=== PATIENT | female | born 1995 | race Caucasian/White ===

== ENCOUNTER 2018-07-15 21:20 | Emergency (ER) | payer OTHER ==
[~2018-07-15] VITALS: Ht 149.9 cm; Wt 65.8 kg
[~2018-07-15 21:20] MED LIST: AMOX500C PO; PNV1TABL25 PO; PROG200C15 PO
[2018-07-15] MEDS ORDERED: IV RINGERS SOLUTION,LACTATED 1,000 ML IV SCH (21:22)
--- NOTE | 2018-07-15 21:22 | ED.ADGEN ---
Past History Past Medical History: No Pertinent History Past Surgical History: No Surgical History Alcohol Use: None Drug Use: None Adult General Chief Complaint Chief Complaint ".. I was just sitting watching TV with my two year old son... and I got sarah flush.. then I started vomiting.. I seen some bright red blood.. here a picture of it...( very min. bloody streaks)... I was feeling sarah bad yesterday... after Wendys... but did not vomit until too night.... I still a little nauseated..." [facility] HPI Patient is a 22 year old female who presents with above hx and complaints of vomiting, chest pain, and a small amount of bloody mucus streaks in her vomit. Patient denies any history of GERD. Patient denies any history of coagulopathy. Patient denies any history of dark stools. Patient denies any history of previous GI bleeds. Patient does smoke. Patient is normally healthy. Patient does reports possible intake and questionable food. No recent travel or specific ill contacts. No history immunosuppression. Patient normally follows with Dr. Sandhu. Pt. does smoke Marijuana- reviewed with her risks of marijuana induced cyclic vomiting. Review of Systems Review of Systems Constitutional: Denies fever or chills [] Eyes: Denies change in visual acuity, redness, or eye pain [] HENT: Denies nasal congestion or sore throat [] Respiratory: Denies cough or shortness of breath [] Cardiovascular: No additional information not addressed in HPI [] GI: History of epigastric abdominal pain, nausea, vomiting, . Denies bloody stools or diarrhea [] : Denies dysuria or hematuria [] Musculoskeletal: Denies back pain or joint pain [] Integument: Denies rash or skin lesions [] Neurologic: Denies headache, focal weakness or sensory changes [] Endocrine: Denies polyuria or polydipsia [] All other systems were reviewed and found to be within normal limits, except as documented in this note. Family History Family History Noncontributory Current Medications Current Medications Current Medications Medications (Trade) Dose Ordered Sig/Zeferino Start Time Stop Time Status Last Admin Dose Admin Diphenhydramine HCl (Benadryl) 50 mg STK-MED ONCE 07/16/18 00:15 12/15/18 00:27 DC Famotidine (Pepcid Vial) 20 mg 1X ONCE 07/15/18 21:30 07/15/18 21:31 DC 07/15/18 21:47 20 MG Lactated Ringer's 1,000 ml @ 1,000 mls/hr Q1H 07/15/18 21:22 07/15/18 22:21 DC 07/15/18 21:47 1,000 MLS/HR Ondansetron HCl (Zofran) 8 mg 1X ONCE 07/15/18 23:30 07/15/18 23:41 DC 07/15/18 23:28 8 MG Prochlorperazine Edisylate (Compazine) 10 mg STK-MED ONCE 07/16/18 00:15 07/16/18 00:27 DC Allergies Allergies Allergies Coded Allergies Type Severity Reaction Last Updated Verified No Known Drug Allergies 10/03/15 No Physical Exam Physical Exam Constitutional: Well developed, well nourished, very anxious, mild distress, non -toxic appearance. [] HENT: Normocephalic, atraumatic, bilateral external ears normal, oropharynx moist, no oral exudates, nose normal. [] Eyes: PERRLA, EOMI, conjunctiva normal, no discharge. [] Neck: Normal range of motion, no tenderness, supple, no stridor. [] Cardiovascular:Heart rate regular rhythm, no murmur [] Lungs & Thorax: Bilateral breath sounds clear to auscultation [] Abdomen: Bowel sounds normal, soft, mild epigastric tenderness, no masses, no pulsatile masses. [] No rebound. Patient declines rectal exam at this time. Skin: Warm, dry, no erythema, no rash. [] No flank petechiae or excessive bruising Back: No tenderness, no CVA tenderness. [] Extremities: No tenderness, no cyanosis, no clubbing, ROM intact, no edema. [] No psoas sign. Neurologic: Alert and oriented X 3, normal motor function, normal sensory function, no focal deficits noted. [] Psychologic: Affect anxious., judgement normal, mood normal. [] Current Patient Data Vital Signs Vital Signs Date Time Temp Pulse Resp B/P (MAP) Pulse Ox O2 Delivery O2 Flow Rate FiO2 07/15/18 23:55 85 19 95/67 (76) 99 Room Air 07/15/18 21:34 98.2 Lab Results Laboratory Tests Test 07/15/18 21:15 07/15/18 21:34 07/15/18 21:40 Urine Collection Type Unknown Urine Color Yellow Urine Clarity Hazy Urine pH 6.5 Urine Specific [place] 1.025 Urine Protein Trace (NEG-TRACE) Urine Glucose (UA) Neg mg/dL (NEG) Urine Ketones (Stick) Trace mg/dL (NEG) Urine Blood Neg (NEG) Urine Nitrite Neg (NEG) Urine Bilirubin Neg (NEG) Urine Urobilinogen Dipstick 0.2 mg/dL (0.2 mg/dL) Urine Leukocyte Esterase Small (NEG) Urine RBC Occ /HPF (0-2) Urine WBC 1-4 /HPF (0-4) Urine Squamous Epithelial Cells Mod /LPF Urine Bacteria Mod /HPF (0-FEW) Urine Mucus Mod /LPF Urine Opiates Screen Neg (NEG) Urine Methadone Screen Neg (NEG) Urine Barbiturates Neg (NEG) Urine Phencyclidine Screen Neg (NEG) Urine Amphetamine/Methamphetamine Neg (NEG) Urine Benzodiazepines Screen Neg (NEG) Urine Cocaine Screen Neg (NEG) Urine Cannabinoids Screen Pos (NEG) Urine Ethyl Alcohol Neg (NEG) POC Urine HCG, Qualitative hcg negative (Negative) White Blood Count 10.7 x10^3/uL (4.0-11.0) Red Blood Count 4.97 x10^6/uL (3.50-5.40) Hemoglobin 13.7 g/dL (12.0-15.5) Hematocrit 41.1 % (36.0-47.0) Mean Corpuscular Volume 83 fL (79-100) Mean Corpuscular Hemoglobin 28 pg (25-35) Mean Corpuscular Hemoglobin Concent 34 g/dL (31-37) Red Cell Distribution Width 16.3 % (11.5-14.5) H Platelet Count 315 x10^3/uL (140-400) Neutrophils (%) (Auto) 73 % (31-73) Lymphocytes (%) (Auto) 20 % (24-48) L Monocytes (%) (Auto) 5 % (0-9) Eosinophils (%) (Auto) 2 % (0-3) Basophils (%) (Auto) 0 % (0-3) Neutrophils # (Auto) 7.8 x10^3uL (1.8-7.7) H Lymphocytes # (Auto) 2.2 x10^3/uL (1.0-4.8) Monocytes # (Auto) 0.6 x10^3/uL (0.0-1.1) Eosinophils # (Auto) 0.2 x10^3/uL (0.0-0.7) Basophils # (Auto) 0.0 x10^3/uL (0.0-0.2) Prothrombin Time 9.9 SEC (9.4-11.4) Prothrombin Time INR 1.0 (0.9-1.1) PTT 24 SEC (23-33) Sodium Level 141 mmol/L (136-145) Potassium Level 3.9 mmol/L (3.5-5.1) Chloride Level 102 mmol/L (98-107) Carbon Dioxide Level 27 mmol/L (21-32) Anion Gap 12 (6-14) Blood Urea Nitrogen 16 mg/dL (7-20) Creatinine 0.7 mg/dL (0.6-1.0) Estimated GFR (Cockcroft-Gault) 104.6 Glucose Level 92 mg/dL (70-99) Calcium Level 8.5 mg/dL (8.5-10.1) Total Bilirubin 0.4 mg/dL (0.2-1.0) Direct Bilirubin 0.1 mg/dL (0.0-0.2) Aspartate Amino Transferase (AST) 17 U/L (15-37) Alanine Aminotransferase (ALT) 26 U/L (14-59) Alkaline Phosphatase 59 U/L (46-116) Creatine Kinase 125 U/L (26-192) Troponin I Quantitative < 0.017 ng/mL (0-0.055) Total Protein 7.4 g/dL (6.4-8.2) Albumin 3.6 g/dL (3.4-5.0) Amylase Level 59 U/L (25-115) Lipase 133 U/L (73-393) EKG EKG [] Radiology/Procedures Radiology/Procedures My interpretation of acute abdomen film shows[] of acute abdomen film shows no acute cardiopulmonary findings. Normal cardiac silhouette. No free air under the diaphragm. Nonspecific bowel gas pattern. There is stool in colon. Nonobstructive pattern. Course & Med Decision Making Course & Med Decision Making Pertinent Labs and Imaging studies reviewed. (See chart for details) Patient to stay on a clear fluid diet only for the next 24-48 hours. No solid or milk products. Allow bowel rest. Takes Zantac 150 mg twice a day. May take Zofran 8 mg 4 times a day for nausea and vomiting. Take Tylenol for pain. Follow -up primary care. Return if any concerns. Must have re-exam if no improvement. [] Final Impression Final Impression 1. Viral syndrome 2. Nausea and vomiting[] 3. Marijuana and Tobacco Use Dragon Disclaimer Dragon Disclaimer This electronic medical record was generated, in whole or in part, using a voice recognition dictation system. DONAL RODRIGUEZ MD Jul 15, 2018 21:22
[2018-07-15] MEDS ORDERED: FAMOTIDINE 20 MG/2 ML VIAL IVP ONE (21:30)
[2018-07-15] MEDS ORDERED: ONDANSETRON PF 4 MG/2 ML VIAL. IV ONE ×2 (21:30→23:30)
[2018-07-15 21:49] LABS: BARBITURATES NEG (NEG); BENZODIAZEPINES NEG (NEG); CANNABINOIDS POS (NEG); COCAINE NEG (NEG); METHADONE NEG (NEG); OPIATES NEG (NEG); PHENCYCLIDINE NEG (NEG)
[2018-07-15 21:50] LABS: BASO % 0 % (0-3); EOS # 0.2 x10^3/uL (0.0-0.7); EOS % 2 % (0-3); HEMATOCRIT 41.1 % (36.0-47.0); HEMOGLOBIN 13.7 g/dL (12.0-15.5); LYMPH # 2.2 x10^3/uL (1.0-4.8); LYMPH % 20 % (24-48); MEAN CORPUSCULAR HEMOGLOBIN 28 pg (25-35); MEAN CORPUSCULAR HGB CONC 34 g/dL (31-37); MEAN CORPUSCULAR VOLUME 83 fL (79-100); MONO # 0.6 x10^3/uL (0.0-1.1); MONO % 5 % (0-9); NEUT # 7.8 x10^3uL (1.8-7.7); NEUT % 73 % (31-73); PLATELET COUNT 315 x10^3/uL (140-400); RED BLOOD COUNT 4.97 x10^6/uL (3.50-5.40); RED CELL DISTRIBUTION WIDTH 16.3 % (11.5-14.5); WHITE BLOOD COUNT 10.7 x10^3/uL (4.0-11.0)
[2018-07-15 21:50] LABS: BACTERIA,URINE MOD /HPF (0-FEW); BILIRUBIN,URINE NEG (NEG); CLARITY,URINE HAZY; COLOR,URINE YELLOW; GLUCOSE,URINE NEG (NEG); NITRITE,URINE NEG (NEG); RBC,URINE OCC /HPF (0-2); UROBILINOGEN,URINE 0.2 mg/dL (0.2 mg/dL)
[2018-07-15 21:51] LABS: SQUAMOUS EPITHELIAL CELL,UR MOD /LPF
[2018-07-15 21:52] LABS: AMPHETAMINE/METHAMPHETAMINE NEG (NEG)
[2018-07-15 22:05] LABS: ALBUMIN 3.6 g/dL (3.4-5.0); CALCIUM 8.5 mg/dL (8.5-10.1); CREATININE 0.7 mg/dL (0.6-1.0); DIRECT BILIRUBIN 0.1 mg/dL (0.0-0.2); GFR 104.6; POTASSIUM 3.9 mmol/L (3.5-5.1); TOTAL BILIRUBIN 0.4 mg/dL (0.2-1.0); TOTAL PROTEIN 7.4 g/dL (6.4-8.2)
[2018-07-15] MEDS ORDERED: ONDA8TAB9 PO (22:18)
[2018-07-15] MEDS ORDERED: RANI150T21 PO (22:18)
--- NOTE | 2018-07-15 22:27 | RAD ---
ACUTE ABDOMEN SERIES History: Comparison: None. Findings: Frontal chest and supine and upright views of the abdomen. Cardiomediastinal silhouette is normal. There is no pleural effusion or pneumothorax. The lungs are clear. No pneumoperitoneum is identified. There is air and stool in the ascending and transverse colon. No dilated air-filled loops of small bowel are seen. Bowel gas pattern is nonobstructive. No obvious organomegaly. Bones unremarkable. IMPRESSION: 1. No acute cardiopulmonary process. 2. Nonobstructive bowel gas pattern. Electronically signed by: Cesar Levy MD (07/15/2018 10:23 PM) [facility]
--- NOTE | 2018-07-15 23:05 | EKG ---
[address] [id number] Test Date: 2018-07-15 Test Time: 21:31:35 Pat Name: TIA SHERIDAN Department: Room: Gender: F [employer]: : 1995 Requested By: DONAL RODRIGUEZ Order Number: [id number] Reading MD: Lance Veliz MD Measurements Intervals [place] Rate: 65 P: 43 OK: 230 QRS: 44 QRSD: 84 T: 34 QT: 378 QTc: 394 Interpretive Statements SINUS RHYTHM PROLONGED OK INTERVAL Electronically Signed On 07-18-2018 10:15:32 [employer] by Lance Veliz MD
[2018-07-15 23:55] VITALS: BP 95/67
[2018-07-16] MEDS ORDERED: PROCHLORPERAZINE 10 MG/2 ML VIAL. IM ONE
[2018-07-16] MEDS ORDERED: diphenhydrAMINE 50 MG/ML VIAL IVP ONE
[2018-07-16] MEDS ORDERED: diphenhydrAMINE 50 MG/ML VIAL ONE (00:15)
[2018-07-16] MEDS ORDERED: PROCHLORPERAZINE 10 MG/2 ML VIAL. ONE (00:15)
[2018-07-16] MEDS ORDERED: PROCHLORPERAZINE 10 MG/2 ML VIAL. IV ONE (00:30)
== END 2018-07-16 00:25 | disposition home or self-care (01) ==
LOC: ER 21:20
DX: B34.9 Viral infection, unspecified (principal); R11.2 Nausea with vomiting, unspecified; F12.10 Cannabis abuse, uncomplicated; Z72.0 Tobacco use
CPT/HCPCS: 36415; 74022; 80048; 80076; 80307; 81001; 81025; 82150; 82550; 83690; 84484; 85025; 85610; 85730; 87086; 93005; 96361; 96374; 96375; 96376; 99284; J0780; J1200; J2405; J3490; J7120